=== PATIENT | male | born 1930 | race Two or more races ===

== ENCOUNTER → 2016-07-23 | Outpatient (CLI) | payer MEDICARE ==
[~2016-07-23] VITALS: Ht 160 cm; Wt 71.0 kg
[~2016-07-23] MED LIST: ASPI81 PO; ATOR20TA86 PO; FURO40 PO; LOSA25TA21 PO; TAMS0.4C32 PO
[2016-07-23 15:17] VITALS: BP 112/60
== END | disposition home or self-care (01) ==
LOC: SRCNTR 15:00
PROVIDERS: ATTEND Internal Medicine Cardiovascular Disease
DX: I10 Essential (primary) hypertension (principal); E78.5 Hyperlipidemia, unspecified; I63.9 Cerebral infarction, unspecified; Z86.79 Personal history of other diseases of the circulatory system
CPT/HCPCS: G0463

== ENCOUNTER → 2016-10-01 | Outpatient (CLI) | payer MEDICARE ==
[~2016-10-01] VITALS: Ht 157.5 cm; Wt 72.0 kg
[2016-10-01 14:12] VITALS: BP 127/64
== END | disposition home or self-care (01) ==
LOC: SRCNTR 14:04
PROVIDERS: ATTEND Internal Medicine Cardiovascular Disease
DX: I10 Essential (primary) hypertension (principal); E78.5 Hyperlipidemia, unspecified; I62.00 Nontraumatic subdural hemorrhage, unspecified
CPT/HCPCS: G0463

== ENCOUNTER → 2016-12-03 | Outpatient (CLI) | payer MEDICARE ==
[~2016-12-03] VITALS: Ht 160 cm; Wt 71.0 kg
[2016-12-03 14:12] VITALS: BP 107/58
== END | disposition home or self-care (01) ==
LOC: SRCNTR 13:56
PROVIDERS: ATTEND Internal Medicine Cardiovascular Disease
DX: I10 Essential (primary) hypertension (principal); E78.5 Hyperlipidemia, unspecified; Z86.79 Personal history of other diseases of the circulatory system
CPT/HCPCS: G0463

== ENCOUNTER → 2017-11-04 | Outpatient (CLI) | payer MEDICARE ==
[~2017-11-04] VITALS: Ht 152.4 cm; Wt 67.0 kg
[~2017-11-04] MED LIST changes: +PARO10TA89 PO
[2017-11-04 15:11] VITALS: BP 147/70
== END | disposition home or self-care (01) ==
LOC: SRCNTR 14:43
PROVIDERS: ATTEND Internal Medicine Cardiovascular Disease
DX: I10 Essential (primary) hypertension (principal); E78.5 Hyperlipidemia, unspecified; Z79.82 Long term (current) use of aspirin; Z88.0 Allergy status to penicillin
CPT/HCPCS: G0463